=== PATIENT | male | born 1970 | race Caucasian/White ===

== ENCOUNTER 2019-10-02 02:44 | Emergency (ER) | payer OTHER ==
[~2019-10-02] VITALS: Ht 172 cm; Wt 86.0 kg
[2019-10-02 03:16] LABS: BASOPHILS % (AUTO) 1 % (0-10); EOSINOPHILS % (AUTO) 4 % (0-10); HEMATOCRIT 39 % (40-54); HEMOGLOBIN 12.7 G/DL (13.3-17.7); LYMPHOCYTES % (AUTO) 41 % (12-44); MEAN CORPUSCULAR HEMOGLOBIN 31 PG (25-34); MEAN CORPUSCULAR HGB CONC 33 G/DL (32-36); MEAN CORPUSCULAR VOLUME 95 FL (80-99); MONOCYTES % (AUTO) 11 % (0-12); NEUTROPHILS % (AUTO) 43 % (42-75); PLATELET COUNT 233 10^3/uL (130-400); RED CELL DISTRIBUTION WIDTH 12.5 % (10.0-14.5); WHITE BLOOD COUNT 7.8 10^3/uL (4.3-11.0)
[2019-10-02 03:17] LABS: BASOPHILS # (AUTO) 0.1 10^3/uL (0.0-0.1); EOSINOPHILS # (AUTO) 0.3 10^3/uL (0.0-0.3); LYMPHOCYTES # (AUTO) 3.2 X 10^3 (1.0-4.0); MONOCYTES # (AUTO) 0.9 X 10^3 (0.0-1.0); NEUTROPHILS # (AUTO) 3.4 X 10^3 (1.8-7.8)
[2019-10-02 03:19] LABS: PROTHROMBIN TIME PATIENT 13.2 SEC (12.2-14.7)
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
[2019-10-02 03:25] LABS: ALANINE AMINOTRANSFERASE 12 U/L (0-55); ALKALINE PHOSPHATASE 73 U/L (40-136); BILIRUBIN,TOTAL 0.3 MG/DL (0.1-1.0); BUN/CREATININE RATIO 20; CARBON DIOXIDE 24 MMOL/L (21-32); CHLORIDE 103 MMOL/L (98-107); CREATININE SERUM 1.14 MG/DL (0.60-1.30); GFR ESTIMATED > 60; GLUCOSE 141 MG/DL (70-105); POTASSIUM 3.1 MMOL/L (3.6-5.0); SODIUM 141 MMOL/L (135-145); TOTAL PROTEIN 7.1 GM/DL (6.4-8.2)
[2019-10-02 03:26] LABS: ALBUMIN 4.3 GM/DL (3.2-4.5)
[2019-10-02] MEDS ORDERED: NS (IVPB) 250 ML IV STA ×2 (03:38→04:31)
[2019-10-02] MEDS ORDERED: KCL 20 MEQ TAB (K-DUR) PO STA (03:58)
[2019-10-02 04:20] VITALS: BP 98/41
--- NOTE | 2019-10-02 07:23 | Diagnostic Imaging Report ---
INDICATION: Chest pain. AP view of the chest is obtained. No previous study is available at this time for comparison. FINDINGS: There is mild generalized cardiomegaly. Pulmonary vascularity is unremarkable. External defibrillator device is present, however, there is no evidence of pneumothorax, consolidation or significant pleural fluid. IMPRESSION: No definite acute abnormality is seen. Dictated by: Dictated on workstation # [id number]
== END 2019-10-02 05:42 | disposition short-term general hospital (02) ==
LOC: ER FS 02:48
DX: I50.9 Heart failure, unspecified (principal); I42.8 Other cardiomyopathies; E87.6 Hypokalemia; I95.9 Hypotension, unspecified; I44.7 Left bundle-branch block, unspecified; I48.91 Unspecified atrial fibrillation; Z95.810 Presence of automatic (implantable) cardiac defibrillator; Z87.891 Personal history of nicotine dependence
CPT/HCPCS: 36415; 71045; 80053; 83735; 83880; 84484; 85025; 85610; 85730; 93005; 93041

== ENCOUNTER 2020-08-13 21:14 | Emergency (ER) | payer OTHER ==
[~2020-08-13] VITALS: Ht 172.7 cm; Wt 88.6 kg
--- NOTE | 2020-08-13 21:25 | NUR ---
This RN was told by the otc clerk the pts refused to leave the building when asked due to covid concerns and policy. This RN went to the waiting room to get the pt which was sitting in a wheelchair and his was caressing his head and hair. Pt taken to room 1. Pt immediately proceeded to call his on the phone so she could listen and be present. When asked what brings him to the ER he states, "my was concerned about my blood pressure", which was 120/55. This RN proceeded to inform him and his that a pressure of that was considered normal. Pts replied, "no its not! His internist medical doctor md said if his pressure gets below 60, to bring him to the emergency room." This RN again informed them that is considered normal. Pt BP at this time is 139/78. Pt tells his the current BP and she states, "then why dont you just leave?!" Pt replied, "well we're already here so might as well let them check me out."
--- NOTE | 2020-08-13 21:27 | ED General ---
General Stated Complaint: WEAKNESS,SOA,LOW BLOOD PRESSURE History of Present Illness Date Seen by Provider: Aug 13, 2020 Time Seen by Provider: 21:27 Initial Comments 50-year-old male presents with just generalized weakness. Just feels more tired than normal. Patient does have a pacemaker however he was seen at the [facility] today and had a pacemaker check that was normal. Concerned about low blood pressure being 120/55. His blood pressure upon arrival was in the 140s over 70s. Patient has no other focal complaints such as cough, nausea, vomiting or other systemic complaints. Allergies and Home Medications Allergies Coded Allergies: No Known Drug Allergies (Unverified , 10/02/19) Patient Home Medication List Home Medication List Reviewed: Yes Review of Systems Review of Systems Constitutional: No chills, No fever; malaise, weakness Respiratory: No cough, No short of breath Cardiovascular: No chest pain, No palpitations Gastrointestinal: No abdominal pain, No nausea, No vomiting Genitourinary: no symptoms reported Musculoskeletal: no symptoms reported Skin: no symptoms reported Hematologic/Lymphatic: No Symptoms Reported Immunological/Allergic: no symptoms reported Past Pdgcctg-Rkkqqp-Ycesmb Hx Patient Social History 2nd Hand Smoke Exposure: No Recent Foreign Travel: No Contact w/Someone Who Travel: No Past Medical History Surgeries: No Respiratory: Yes Sleep Apnea Cardiac: Yes Atrial Fibrillation, Cardiomyopathy, Hypotension, Irregular Heartbeat Neurological: No Genitourinary: No Gastrointestinal: No Musculoskeletal: No Endocrine: No HEENT: No Cancer: No Psychosocial: No Integumentary: No Blood Disorders: No Physical Exam Vital Signs Vital Signs - First Documented 08/13/20 21:20 Temp 36.6 Pulse 65 Resp 12 B/P (MAP) 139/78 (98) Pulse Ox 97 Capillary Refill : Height, Weight, BMI Height: '" Weight: lbs. oz. kg; 29.00 BMI Method: General Appearance: No Apparent Distress, WD/WN Eyes: Bilateral Eye Normal Inspection, Bilateral Eye PERRL, Bilateral Eye EOMI Neck: Non Tender, Supple Respiratory: Chest Non Tender, Lungs Clear, Normal Breath Sounds Cardiovascular: Regular Rate, Rhythm, No Edema, Normal Peripheral Pulses Gastrointestinal: Non Tender, Soft Back: No CVA Tenderness Extremity: Normal Capillary Refill, Normal Range of Motion Neurologic/Psychiatric: Alert, Oriented x3, No Motor/Sensory Deficits, Normal Mood/Affect, entrepreneur II-XII Norm as Tested Skin: Normal Color, Warm/Dry Progress/Results/Core Measures Suspected Sepsis SIRS Temperature: Pulse: Respiratory Rate: Laboratory Tests 08/13/20 21:28: White Blood Count 7.9 Blood Pressure / Mean: Laboratory Tests 08/13/20 21:28: Creatinine 1.31H, Platelet Count 222, Total Bilirubin 0.2 Results/Orders Lab Results Laboratory Tests Test 08/13/20 21:28 08/13/20 21:40 Range/Units White Blood Count 7.9 4.3-11.0 10^3/uL Red Blood Count 3.88 L 4.35-5.85 10^6/uL Hemoglobin 12.1 L 13.3-17.7 G/DL Hematocrit 35 L 40-54 % Mean Corpuscular Volume 90 80-99 FL Mean Corpuscular Hemoglobin 31 25-34 PG Mean Corpuscular Hemoglobin Concent 35 32-36 G/DL Red Cell Distribution Width 12.4 10.0-14.5 % Platelet Count 222 130-400 10^3/uL Mean Platelet Volume 10.1 7.4-10.4 FL Immature Granulocyte % (Auto) 0 % Neutrophils (%) (Auto) 55 42-75 % Lymphocytes (%) (Auto) 33 12-44 % Monocytes (%) (Auto) 9 0-12 % Eosinophils (%) (Auto) 3 0-10 % Basophils (%) (Auto) 1 0-10 % Neutrophils # (Auto) 4.3 1.8-7.8 X 10^3 Lymphocytes # (Auto) 2.6 1.0-4.0 X 10^3 Monocytes # (Auto) 0.7 0.0-1.0 X 10^3 Eosinophils # (Auto) 0.2 0.0-0.3 10^3/uL Basophils # (Auto) 0.1 0.0-0.1 10^3/uL Immature Granulocyte # (Auto) 0.0 0.0-0.1 10^3/uL Sodium Level 139 135-145 MMOL/L Potassium Level 3.9 3.6-5.0 MMOL/L Chloride Level 104 98-107 MMOL/L Carbon Dioxide Level 25 21-32 MMOL/L Anion Gap 10 5-14 MMOL/L Blood Urea Nitrogen 26 H 7-18 MG/DL Creatinine 1.31 H 0.60-1.30 MG/DL Estimat Glomerular Filtration Rate 58 BUN/Creatinine Ratio 20 Glucose Level 118 H 70-105 MG/DL Calcium Level 9.2 8.5-10.1 MG/DL Corrected Calcium 9.1 8.5-10.1 MG/DL Magnesium Level 2.3 1.6-2.4 MG/DL Total Bilirubin 0.2 0.1-1.0 MG/DL Aspartate Amino Transf (AST/SGOT) 16 5-34 U/L Alanine Aminotransferase (ALT/SGPT) 14 0-55 U/L Alkaline Phosphatase 68 40-136 U/L C-Reactive Protein 0.11 <0.50 MG/DL Total Protein 6.7 6.4-8.2 GM/DL Albumin 4.1 3.2-4.5 GM/DL Urine Color YELLOW Urine Clarity CLOUDY Urine pH 6.0 5-9 Urine Specific [place] 1.015 L 1.016-1.022 Urine Protein NEGATIVE NEGATIVE Urine Glucose (UA) NEGATIVE NEGATIVE Urine Ketones NEGATIVE NEGATIVE Urine Nitrite NEGATIVE NEGATIVE Urine Bilirubin NEGATIVE NEGATIVE Urine Urobilinogen 0.2 < = 1.0 MG/DL Urine Leukocyte Esterase NEGATIVE NEGATIVE Urine RBC (Auto) NEGATIVE NEGATIVE Urine RBC NONE /HPF Urine WBC NONE /HPF Urine Squamous Epithelial Cells RARE /HPF Urine Crystals NONE /LPF Urine Bacteria NONE /HPF Urine Casts NONE /LPF Urine Mucus NEGATIVE /LPF Urine Culture Indicated NO My Orders Orders - KHAN,SAPPHIRE L DO Chest Pa/Lat (2 View) (08/13/20 21:34) Cbc With Automated Diff (08/13/20 21:34) Comprehensive Metabolic Panel (08/13/20 21:34) Magnesium (08/13/20 21:34) Thyroid Stimulating Hormone (08/13/20 21:34) Ua Culture If Indicated (08/13/20 21:34) Crp Fs (08/13/20 21:34) Ekg Tracing (08/13/20 21:34) Monitor-Rhythm Ecg Trace Only (08/13/20 21:34) Vital Signs/I&O 08/13/20 21:20 Temp 36.6 Pulse 65 Resp 12 B/P (MAP) 139/78 (98) Pulse Ox 97 Capillary Refill : Departure Impression Primary Impression: Dehydration, mild Disposition: 01 HOME, SELF-CARE Condition: Stable Departure-Patient Inst. Referrals: NO,LOCAL PHYSICIAN (PCP/Family) Primary Care Physician Patient Instructions: Why Water Is Important to Health, Dehydration, Adult (DC) Add. Discharge Instructions: Follow-up with your primary care provider in 3-4 days for recheck in today symptoms Emergency department focuses on treating and ruling out life-threatening diseases. Whenever possible, a diagnosis is given. However, most patients are given an impression based on their history, physical exam, and workup during your brief time in the ER. Information about probable diagnosis and other educational material has been provided. Please take the time to read and understand this information. It is very important that you follow up with a physician as discussed during the visit today. Failure to adhere to your follow-up instructions may lead to severe disability, injury, or so please make sure to keep your appointments or obtain one as requested. Please keep in mind the emergency department is not designed to your primary care or "family doctor" and nonurgent issues are best evaluated by an outpatient physician SAPPHIRE KHAN DO Aug 13, 2020 21:27
--- NOTE | 2020-08-13 21:40 | NUR ---
This RN was told by [employer] the pts who was on the phone asked, "why are they doing lab work and checking your urine?" She informed her that he had a complaint of weakness and his BP is fine therefore we need to assess and complete a full workup to rule out any life threats. Dr. Mcgraw notified of the wifes concerns.
[2020-08-13 21:50] LABS: BASOPHILS # (AUTO) 0.1 10^3/uL (0.0-0.1); BASOPHILS % (AUTO) 1 % (0-10); EOSINOPHILS # (AUTO) 0.2 10^3/uL (0.0-0.3); EOSINOPHILS % (AUTO) 3 % (0-10); HEMATOCRIT 35 % (40-54); HEMOGLOBIN 12.1 G/DL (13.3-17.7); LYMPHOCYTES # (AUTO) 2.6 X 10^3 (1.0-4.0); LYMPHOCYTES % (AUTO) 33 % (12-44); MEAN CORPUSCULAR HEMOGLOBIN 31 PG (25-34); MEAN CORPUSCULAR HGB CONC 35 G/DL (32-36); MEAN CORPUSCULAR VOLUME 90 FL (80-99); MEAN PLATELET VOLUME 10.1 FL (7.4-10.4); MONOCYTES # (AUTO) 0.7 X 10^3 (0.0-1.0); MONOCYTES % (AUTO) 9 % (0-12); NEUTROPHILS # (AUTO) 4.3 X 10^3 (1.8-7.8); NEUTROPHILS % (AUTO) 55 % (42-75); PLATELET COUNT 222 10^3/uL (130-400); WHITE BLOOD COUNT 7.9 10^3/uL (4.3-11.0)
[2020-08-13 21:55] LABS: CLARITY,URINE CLOUDY; COLOR,URINE YELLOW
[2020-08-13 21:56] LABS: BILIRUBIN,URINE NEGATIVE (NEGATIVE); GLUCOSE, URINE (UA) NEGATIVE (NEGATIVE); KETONES,URINE NEGATIVE (NEGATIVE); LEUKOCYTE ESTERASE ,URINE NEGATIVE (NEGATIVE); NITRITE,URINE NEGATIVE (NEGATIVE); PROTEIN,URINE NEGATIVE (NEGATIVE); SQUAMOUS EPITHELIAL CELL,UR RARE /HPF
--- NOTE | 2020-08-13 21:59 | Diagnostic Imaging Report ---
EXAMINATION: CHEST (PA AND LATERAL) CLINICAL INDICATION: 50-year-old male, weakness. COMPARISON: October 02, 2019. FINDINGS: There is a left-sided cardiac assist device with leads. Stable overall appearance of the cardiomediastinal silhouette. There is no identified pneumothorax. There is no pleural effusion. There is no identified focal airspace consolidation. There is a nodule projecting over the right mid to upper lung measuring 4 mm in size. IMPRESSION: 1. No identified acute cardiopulmonary abnormality. 2. Potential 4 mm right mid to upper lung pulmonary nodule. Dictated by: Dictated on workstation # [id number]
[2020-08-13 22:04] LABS: ALBUMIN 4.1 GM/DL (3.2-4.5); BILIRUBIN,TOTAL 0.2 MG/DL (0.1-1.0); CALCIUM 9.2 MG/DL (8.5-10.1); CREATININE SERUM 1.31 MG/DL (0.60-1.30); MAGNESIUM 2.3 MG/DL (1.6-2.4); POTASSIUM 3.9 MMOL/L (3.6-5.0); TOTAL PROTEIN 6.7 GM/DL (6.4-8.2)
[2020-08-13 22:27] VITALS: BP 132/68
== END 2020-08-13 22:27 | disposition home or self-care (01) ==
LOC: EDUNIT# 21:14 → ER FS 21:16
DX: E86.0 Dehydration (principal); Z95.0 Presence of cardiac pacemaker
CPT/HCPCS: 36415; 71046; 80053; 81000; 83735; 84443; 85025; 86141; 93041

== ENCOUNTER 2020-09-06 18:19 | Emergency (ER) | payer OTHER ==
[~2020-09-06] VITALS: Ht 172.7 cm; Wt 81.8 kg
--- NOTE | 2020-09-06 18:43 | ED Chest Pain ---
General Stated Complaint: CHEST PAIN Source: patient Exam Limitations: no limitations History of Present Illness Date Seen by Provider: Sep 06, 2020 Time Seen by Provider: 18:35 Initial Comments 50-year-old male presents with chest pain onset 4 o'clock today and persisted on arrival to the ER, but resolved by time I evaluated him. Patient said he worked today and had no trouble, no pain while at work and his symptoms of chest pain began when he got home and was simply walking to his house. Had similar episode 3 days prior which lasted a few minutes and resolved while he was driving. Past medical history significant for heart failure and had a pacemaker/defibrillator inserted about one year ago. Patient followed at the [facility]. Allergies and Home Medications Allergies Coded Allergies: No Known Drug Allergies (Unverified , 10/02/19) Patient Home Medication List Home Medication List Reviewed: Yes Review of Systems Review of Systems Constitutional: see HPI; No dizziness, No fever, No malaise, No weakness EENTM: No Symptoms Reported Respiratory: No Symptoms Reported; Denies Cough, Denies Shortness of Air Cardiovascular: Chest Pain; Denies Edema, Denies Irregular Heart Rate, Denies Lightheadedness, Denies Palpitations, Denies Syncope Gastrointestinal: Denies Abdominal Pain, Denies Nausea, Denies Poor Appetite, Denies Poor Fluid Intake, Denies Vomiting Musculoskeletal: No back pain, No joint pain, No neck pain Skin: No change in color, No lesions, No rash Psychiatric/Neurological: Denies Headache, Denies Numbness, Denies Paresthesia Past Qzsfbjh-Thkaok-Wgezkt Hx Past Med/Social Hx: Reviewed Nursing Past Med/Soc Hx Patient Social History 2nd Hand Smoke Exposure: No Recent Foreign Travel: No Contact w/Someone Who Travel: No Recent Hopitalizations: No Seasonal Allergies Seasonal Allergies: No Past Medical History Surgeries: Yes Pacemaker Respiratory: Yes Sleep Apnea Cardiac: Yes Atrial Fibrillation, Cardiomyopathy, Hypotension, Irregular Heartbeat Neurological: No Genitourinary: No Gastrointestinal: No Musculoskeletal: No Endocrine: No HEENT: No Cancer: No Psychosocial: No Integumentary: No Blood Disorders: No Physical Exam Vital Signs Vital Signs - First Documented 09/06/20 18:40 Temp 35.9 Pulse 65 Resp 15 B/P (MAP) 146/72 (96) Pulse Ox 98 O2 Delivery Room Air Capillary Refill : Height, Weight, BMI Height: '" Weight: lbs. oz. kg; 29.00 BMI Method: General Appearance: No Apparent Distress, WD/WN HEENT: PERRL/EOMI, Normal ENT Inspection Neck: Non Tender, Supple Respiratory: Lungs Clear, Normal Breath Sounds, No Accessory Muscle Use, No Respiratory Distress Cardiovascular: Regular Rate, Rhythm, No Edema, No Gallop, No JVD, Normal Peripheral Pulses Gastrointestinal: Normal Bowel Sounds, No Pulsatile Mass, Non Tender, Soft Extremity: Normal Capillary Refill, Normal Range of Motion, Non Tender Neurologic/Psychiatric: Alert, Oriented x3, No Motor/Sensory Deficits, Normal Mood/Affect Skin: Normal Color, Warm/Dry Progress/Results/Core Measures Results/Orders Lab Results Laboratory Tests Test 09/06/20 18:40 09/06/20 20:40 Range/Units White Blood Count 6.6 4.3-11.0 10^3/uL Red Blood Count 3.93 L 4.35-5.85 10^6/uL Hemoglobin 12.2 L 13.3-17.7 G/DL Hematocrit 36 L 40-54 % Mean Corpuscular Volume 90 80-99 FL Mean Corpuscular Hemoglobin 31 25-34 PG Mean Corpuscular Hemoglobin Concent 34 32-36 G/DL Red Cell Distribution Width 12.2 10.0-14.5 % Platelet Count 229 130-400 10^3/uL Mean Platelet Volume 9.9 7.4-10.4 FL Immature Granulocyte % (Auto) 0 % Neutrophils (%) (Auto) 56 42-75 % Lymphocytes (%) (Auto) 33 12-44 % Monocytes (%) (Auto) 7 0-12 % Eosinophils (%) (Auto) 4 0-10 % Basophils (%) (Auto) 1 0-10 % Neutrophils # (Auto) 3.7 1.8-7.8 X 10^3 Lymphocytes # (Auto) 2.2 1.0-4.0 X 10^3 Monocytes # (Auto) 0.4 0.0-1.0 X 10^3 Eosinophils # (Auto) 0.3 0.0-0.3 10^3/uL Basophils # (Auto) 0.0 0.0-0.1 10^3/uL Immature Granulocyte # (Auto) 0.0 0.0-0.1 10^3/uL Sodium Level 139 135-145 MMOL/L Potassium Level 3.8 3.6-5.0 MMOL/L Chloride Level 105 98-107 MMOL/L Carbon Dioxide Level 24 21-32 MMOL/L Anion Gap 10 5-14 MMOL/L Blood Urea Nitrogen 20 H 7-18 MG/DL Creatinine 1.08 0.60-1.30 MG/DL Estimat Glomerular Filtration Rate > 60 BUN/Creatinine Ratio 19 Glucose Level 166 H 70-105 MG/DL Calcium Level 9.0 8.5-10.1 MG/DL Corrected Calcium 8.7 8.5-10.1 MG/DL Total Bilirubin 0.2 0.1-1.0 MG/DL Aspartate Amino Transf (AST/SGOT) 18 5-34 U/L Alanine Aminotransferase (ALT/SGPT) 14 0-55 U/L Alkaline Phosphatase 73 40-136 U/L Troponin I < 0.30 < 0.30 <0.30 NG/ML Total Protein 6.9 6.4-8.2 GM/DL Albumin 4.4 3.2-4.5 GM/DL My Orders Orders - ARRONVENSTAICHA MCDONNELL DO Ed Iv/Invasive Line Start (09/06/20 18:33) Cbc With Automated Diff (09/06/20 18:33) Comprehensive Metabolic Panel (09/06/20 18:33) Troponin I Fs (09/06/20 18:33) Ekg Tracing (09/06/20 18:33) Chest 1 View Ap/Pa Only (09/06/20 18:33) Troponin I Fs (09/06/20 20:30) Vital Signs/I&O 09/06/20 18:40 Temp 35.9 Pulse 65 Resp 15 B/P (MAP) 146/72 (96) Pulse Ox 98 O2 Delivery Room Air Progress Progress Note : Progress Note 1919- re-evaluation of patient, resting comfortably, denies any CP. Says symptoms have resolved. Explained we were going to check one more Troponin le juan. 2039- repeat Troponin also negative. Pt still not having any chest pain and feels fine. discussed f/u w Cardiology Initial ECG Impression Date: Sep 06, 2020 Initial ECG Impression Time: 18:40 Initial ECG Rate: 60 Initial ECG Comparisson: Unchanged (from ECG 08/13/2020) Comment AV paced rhythm Diagnostic Imaging Diagonstic Imaging: Xray Plain Films/CT/US/NM/MRI: chest Comments Date of Exam:09/06/20 CHEST 1 VIEW AP/PA ONLY INDICATION: Chest pain. EXAMINATION: Portable chest at 6:37 p.m. FINDINGS: There is a dual-chamber pacemaker. Heart size and pulmonary vascularity are normal. Lungs are clear. There is no effusion or pneumothorax. IMPRESSION: No acute abnormality in the chest. Dictated by: Dictated on workstation # [id number] Dict: 09/06/20 1846 Trans: 09/06/201902 E [id number] Interpreted by: DARVIN MALAGON MD Electronically signed by: DARVIN MALAGON MD 09/06/201902 Departure Impression Primary Impression: Chest pain Qualified Codes: R07.9 - Chest pain, unspecified Disposition: HOME, SELF-CARE Condition: Improved (CP resolved) Departure-Patient Inst. Decision time for Depature: 20:48 Referrals: NO,LOCAL PHYSICIAN (PCP/Family) Primary Care Physician Patient Instructions: Chest Pain (DC) Add. Discharge Instructions: Call your [facility] office on Wednesday to let them know you were seen in the ER for Chest pain. Keep your appointment with your [facility] scheduled for 09/16/2020. Return to the nearest ER for any return of chest pain more than a few minutes. AICHA ANNE DO Sep 06, 2020 18:43
[2020-09-06 18:44] LABS: EOSINOPHILS % (AUTO) 4 % (0-10); HEMATOCRIT 36 % (40-54); HEMOGLOBIN 12.2 G/DL (13.3-17.7); LYMPHOCYTES % (AUTO) 33 % (12-44); MEAN CORPUSCULAR HEMOGLOBIN 31 PG (25-34); MEAN CORPUSCULAR HGB CONC 34 G/DL (32-36); MEAN CORPUSCULAR VOLUME 90 FL (80-99); MEAN PLATELET VOLUME 9.9 FL (7.4-10.4); MONOCYTES % (AUTO) 7 % (0-12); NEUTROPHILS % (AUTO) 56 % (42-75); PLATELET COUNT 229 10^3/uL (130-400); WHITE BLOOD COUNT 6.6 10^3/uL (4.3-11.0)
[2020-09-06 18:45] LABS: BASOPHILS % (AUTO) 1 % (0-10); EOSINOPHILS # (AUTO) 0.3 10^3/uL (0.0-0.3); LYMPHOCYTES # (AUTO) 2.2 X 10^3 (1.0-4.0); MONOCYTES # (AUTO) 0.4 X 10^3 (0.0-1.0); NEUTROPHILS # (AUTO) 3.7 X 10^3 (1.8-7.8)
--- NOTE | 2020-09-06 18:49 | Diagnostic Imaging Report ---
INDICATION: Chest pain. EXAMINATION: Portable chest at 6:37 p.m. FINDINGS: There is a dual-chamber pacemaker. Heart size and pulmonary vascularity are normal. Lungs are clear. There is no effusion or pneumothorax. IMPRESSION: No acute abnormality in the chest. Dictated by: Dictated on workstation # [id number]
--- NOTE | 2020-09-06 19:00 | NUR ---
Marybel shin in [facility] - 09/06/20 at 1911 by [id number] Received patient report from Rebecca SRIVASTAVA.
[2020-09-06 19:08] LABS: ALANINE AMINOTRANSFERASE 14 U/L (0-55); ALKALINE PHOSPHATASE 73 U/L (40-136); BILIRUBIN,TOTAL 0.2 MG/DL (0.1-1.0); BUN/CREATININE RATIO 19; CARBON DIOXIDE 24 MMOL/L (21-32); CHLORIDE 105 MMOL/L (98-107); CREATININE SERUM 1.08 MG/DL (0.60-1.30); GFR ESTIMATED > 60; GLUCOSE 166 MG/DL (70-105); POTASSIUM 3.8 MMOL/L (3.6-5.0); SODIUM 139 MMOL/L (135-145)
[2020-09-06 19:09] LABS: ALBUMIN 4.4 GM/DL (3.2-4.5); TOTAL PROTEIN 6.9 GM/DL (6.4-8.2)
[2020-09-06 20:48] VITALS: BP 121/57
== END 2020-09-06 20:55 | disposition home or self-care (01) ==
LOC: EDUNIT# 18:19 → ER FS 18:20
DX: R07.9 Chest pain, unspecified (principal); Z95.810 Presence of automatic (implantable) cardiac defibrillator
CPT/HCPCS: 36415; 71045; 80053; 84484; 85025; 93005; 93041

== ENCOUNTER 2022-11-02 20:35 | Emergency (ER) | payer OTHER ==
[~2022-11-02] VITALS: Ht 172.7 cm; Wt 84.0 kg
[2022-11-02] MEDS ORDERED: PENI500T PO ×2 (21:25→21:29)
--- NOTE | 2022-11-02 21:26 | ED EENT ---
History of Present Illness General Chief Complaint: Dental Problems/Pain Stated Complaint: TOOTH PAIN Source: patient Exam Limitations: no limitations History of Present Illness Date Seen by Provider: Nov 02, 2022 Time Seen by Provider: 21:00 Initial Comments Patient is a 52-year-old male who presents with chronic dental pain with erosion of left upper central incisor. No medications or therapies taken prior to ED arrival. Patient states he has contacted dentist today and not heard back. Pain is rated moderate to severe. No dysphonia drooling trismus. No facial swelling or cellulitis. No other symptoms or complaints Timing/Duration: gradual Severity: moderate Location: mouth Prearrival Treatment: other Modifying Factors: Improves With Other Associated Symptoms: other Allergies and Home Medications Allergies Coded Allergies: No Known Drug Allergies (Unverified , 10/02/19) Patient Home Medication List Home Medication List Reviewed: Yes Review of Systems Review of Systems Constitutional: see HPI Eyes: See HPI Ears: See HPI Mouth: see HPI Past Azqigil-Zxjjxc-Potsmp Hx Seasonal Allergies Seasonal Allergies: No Past Medical History Surgeries: Yes Pacemaker Respiratory: Yes Sleep Apnea Cardiac: Yes Atrial Fibrillation, Cardiomyopathy, Hypotension, Irregular Heartbeat Neurological: No Genitourinary: No Gastrointestinal: No Musculoskeletal: No Endocrine: No HEENT: No Cancer: No Psychosocial: No Integumentary: No Blood Disorders: No Physical Exam Height, Weight, BMI Height: '" Weight: lbs. oz. kg; 27.00 BMI Method: General Appearance: WD/WN, no apparent distress Eyes: bilateral eye normal inspection, bilateral eye PERRL Ears: bilateral ear auricle normal, bilateral ear canal normal, bilateral ear TM normal Nose: normal inspection Mouth/Throat: other (Erosion of left upper central incisor with gingival and socket tenderness. No facial swelling, cellulitis. No dysphonia drooling or trismus. Widespread caries) Progress/Results/Core Measures Results/Orders My Orders Orders - JETT CHUN DO Acetaminophen Tablet (Tylenol Tablet) (11/02/22 21:30) Amoxicillin/Clavulanate Tablet (Augmenti (11/02/22 21:30) Departure Communication (Admissions) Dental pain secondary to caries Impression Primary Impression: Pain due to dental caries Disposition: HOME, SELF-CARE Condition: Stable Departure-Patient Inst. Decision time for Depature: 21:24 Referrals: BOGE,TAISHA J SHOW H[employer]OL TECHNICIAN (PCP) Primary Care Physician NO,LOCAL PHYSICIAN (Family) Primary Care Physician Patient Instructions: Dental Pain ED Add. Discharge Instructions: You were evaluated in the emergency department for dental pain related to infection. Please take ibuprofen or Tylenol for pain antibiotics as directed. Follow-up with a dentist of choice is soon as possible. All discharge instructions reviewed with patient and/or family. Voiced understanding. Scripts Penicillin V Potassium (Penicillin V Potassium) 500 Mg Tablet 500 MG PO QID, #40 TAB Prov: JETT CHUN DO 11/02/22 JETT CHUN DO Nov 02, 2022 21:26
[2022-11-02] MEDS ORDERED: AUGMENTIN 875 MG TAB (AMOXICILLIN/CLAVULANATE) PO SCH (21:30)
[2022-11-02] MEDS ORDERED: ACETAMINOPHEN 500 MG TAB (TYLENOL) PO ONE (21:30)
[2022-11-02 21:45] VITALS: BP 131/70
== END 2022-11-02 21:45 | disposition home or self-care (01) ==
LOC: EDUNIT# 20:35 → ER FS 20:36
DX: K02.9 Dental caries, unspecified (principal); Z28.310 Unvaccinated for COVID-19
CPT/HCPCS: 99283

== ENCOUNTER 2023-01-04 17:16 | Emergency (ER) | payer OTHER ==
[~2023-01-04 17:16] MED LIST: PENI500T PO
[2023-01-04] MEDS ORDERED: RABIES VACCINE HUMAN DIPL CELL 1 ML/2.5 UNITS SYR IM ONE (17:30)
[2023-01-04] MEDS ORDERED: AMOX-355 PO (17:36)
--- NOTE | 2023-01-04 17:38 | ED Integumentary General ---
General Chief Complaint: Bite-Animal/Human/Insect Stated Complaint: DOG BITE ON HAND Source: patient Exam Limitations: no limitations History of Present Illness Date Seen by Provider: Jan 04, 2023 Time Seen by Provider: 17:20 Initial Comments 52-year-old male presents to the emergency department today for dog bite to his left hand that happened about 30 minutes prior to arrival. His dog and his rlybbho-kb-kxz's dog got into a fight and he was trying to break it up. He thinks it might have broken his left hand. Tetanus shot was 3 years ago. His dog's immunizations are up-to-date, unclear immunization status for his brother in law's dog. His dihpwkb-si-asb is currently in the [facility] halfway so is unable to reach him. Denies any other injuries. Allergies and Home Medications Allergies Coded Allergies: No Known Drug Allergies (Unverified , 10/02/19) Patient Home Medication List Home Medication List Reviewed: Yes Amoxicillin/Potassium Clav (Augmentin 500-125 Tablet) 500 Mg-125 Mg Tablet, 1 EACH PO BID Prescribed by: WILMAN GARCIA MD on 01/04/231735 Penicillin V Potassium (Penicillin V Potassium) 500 Mg Tablet, 500 MG PO QID Prescribed by: JETT CHUN on 11/02/222124 Penicillin V Potassium (Penicillin V Potassium) 500 Mg Tablet, 500 MG PO QID Prescribed by: JETT CHUN on 11/02/222128 Review of Systems Review of Systems Constitutional: no symptoms reported EENTM: no symptoms reported Respiratory: no symptoms reported Cardiovascular: no symptoms reported Gastrointestinal: no symptoms reported Genitourinary: no symptoms reported Musculoskeletal: other (Left hand pain, swelling) Skin: other (Left hand lacerations dorsally from dog bite) Psychiatric/Neurological: No Symptoms Reported Endocrine: No Symptoms Reported Hematologic/Lymphatic: No Symptoms Reported Past Ccntuqe-Ztgpdz-Nfcmtl Hx Patient Social History Tobacco Use?: Yes Use of E-Cig and/or Vaping dev: No Substance use?: No Alcohol Use?: No Immunizations Up To Date First/Initial COVID19 Vaccinat: Unvaccinated Seasonal Allergies Seasonal Allergies: No Past Medical History Surgery/Hospitalization HX: Hypotension hx, Heart Failure, Hypokalemia hx, Left BBB, A Fib, Pacemaker, Cardiac Defibrillator, finger surgery Surgeries: Yes Pacemaker Respiratory: Yes Sleep Apnea Cardiac: Yes Atrial Fibrillation, Cardiomyopathy, Hypotension, Irregular Heartbeat Neurological: No Genitourinary: No Gastrointestinal: No Musculoskeletal: No Endocrine: No HEENT: No Cancer: No Psychosocial: No Integumentary: No Blood Disorders: No Family Medical History Reviewed Nursing Family Hx No Pertinent Family Hx Physical Exam Vital Signs Vital Signs - First Documented 01/04/23 17:33 Temp 36.8 Pulse 106 Resp 16 B/P (MAP) 122/68 (86) Pulse Ox 96 O2 Delivery Room Air Capillary Refill : General Appearance: WD/WN, no apparent distress HEENT: normal ENT inspection, pharynx normal Cardiovascular: regular rate, rhythm, no murmur Respiratory: chest non-tender, lungs clear, normal breath sounds, no respiratory distress, no accessory muscle use Gastrointestinal: normal bowel sounds, non tender, soft, no organomegaly Extremities: other (Swelling in the left hand, especially dorsally) Neurologic/Psychiatric: alert, normal mood/affect, oriented x 3 Skin: other (Dorsal swelling. There is laceration lateral aspect of left hand on the extensor surface, approximately 1 cm in length, superficial. There is a puncture type wound between the index and middle finger knuckle on the same hand. Neurovascular and sensory intact.) Lymphatic: no adenopathy Progress/Results/Core Measures Results/Orders My Orders Orders - WILMAN GARCIA DO Hand 3 View Left (01/04/23 17:29) Rabies Vaccine Human Dipl Cell (Rabavert (01/04/23 17:30) Vital Signs/I&O 01/04/23 17:33 Temp 36.8 Pulse 106 Resp 16 B/P (MAP) 122/68 (86) Pulse Ox 96 O2 Delivery Room Air Departure Communication (Admissions) Patient is hemodynamically stable. Unknown vaccination status of the dog that he was bitten by. I initially recommended rabies vaccine and he initially declined stating he knows the dog does not have rabies. I impressed that rabies is life-threatening and cannot be treated once infection sets in. I again recommended he have the rabies vaccine and he ultimately decides to go ahead with this. I recommend he complete the series unless he can get hold of his brother in law to verify that the dog's had a rabies vaccine Impression Primary Impression: Dog bite Qualified Codes: W54.0XXA - Bitten by dog, initial encounter Disposition: 01 HOME, SELF-CARE Condition: Stable Departure-Patient Inst. Referrals: TAISHA XIONGP-RN NICU (PCP) Primary Care Physician NO,LOCAL PHYSICIAN (Family) Primary Care Physician Patient Instructions: Animal Bites (DC) Add. Discharge Instructions: Take the antibiotics as prescribed until they are gone. Continue the rabies vaccine series until it is completed unless you verify the vaccination status of the dog I do recommend you complete this. Is important to keep an eye out for infection. If you have any fevers or drainage that looks like pus you need to return to the emergency department immediately. All discharge instructions reviewed with patient and/or family. Voiced understanding. Scripts Amoxicillin/Potassium Clav (Augmentin 500-125 Tablet) 500 Mg-125 Mg Tablet 1 EACH PO BID for 10 Days, #20 TAB Prov: WILMAN GARCIA DO 01/04/23 WILMAN GARCIA DO Jan 04, 2023 17:38
--- NOTE | 2023-01-04 17:57 | Diagnostic Imaging Report ---
INDICATION: Dog bite, pain L hand. TECHNIQUE: Three views of the left hand. CORRELATION STUDY: None. FINDINGS: Transversely oriented fracture at the fifth metacarpal neck. There is slight volar offset and angulation. Remaining osseous structures otherwise appear to be intact. Soft tissue gas collections over the hand are present. Punctate density in the soft tissues adjacent to the fifth metacarpal. Could be summation shadow versus associated with the laceration and/or less likely foreign body. IMPRESSION: 1. Minimally displaced angulated distal fifth metacarpal fracture. 2. Soft tissue gas collection compatible with puncture wound to the hand. Very questionable density adjacent to the fifth metacarpal likely associated with laceration and/or summation shadow. Foreign body is considered more remote. Dictated by: Dictated on workstation # [id number]
[2023-01-04 18:19] VITALS: BP 122/68
== END 2023-01-04 18:19 | disposition home or self-care (01) ==
LOC: EDUNIT# 17:16 → ER FS 17:18
DX: S61.452A Open bite of left hand, initial encounter (principal); Z28.310 Unvaccinated for COVID-19; W54.0XXA Bitten by dog, initial encounter
CPT/HCPCS: 73130; 90675